=== PATIENT | female | born 1950 | race Caucasian/White ===

== ENCOUNTER 2017-09-24 19:04 | Emergency (ER) | payer MEDICARE, BC ==
[2017-09-24 21:39] LABS: Basophils % (A) 0 %; Eosinophils # (A) 0.1 k/uL (0-0.7); Eosinophils % (A) 2 %; HCT 36.6 % (34.0-46.0); HGB 12.8 gm/dL (11.4-16.0); Lymphocytes # (A) 1.2 k/uL (1.0-4.8); Lymphocytes % (A) 17 %; MCH 32.2 pg (25.0-35.0); Mean Platelet Volume 7.6; Monocytes # (A) 0.5 k/uL (0-1.0); Monocytes % (A) 7 %; Neutrophils % (A) 72 %; Platelet Count 225 k/uL (150-450); RBC 3.97 m/uL (3.80-5.40); WBC 6.9 k/uL (3.8-10.6)
[2017-09-24] MEDS ORDERED: ceFAZolin IN SWFI 2 GM/20 ML SYRINGE IVP ONE (22:12)
--- NOTE | 2017-09-24 22:24 | ED ---
General Adult HPI - General Chief complaint: Extremity Problem,Nontraumatic Stated complaint: poss DVT Time Seen by Provider: 09/24/17 21:07 Source: patient, family Mode of arrival: ambulatory Limitations: no limitations - History of Present Illness Initial comments: Female presents with the right leg swelling, redness ongoing for about 24 hours now it's painful and numb right calf has swollen in size, she has a history of DVT in the right leg and now she is concerned about swelling on the front part of the leg below the knee. She has a history of peripheral vascular disease she swallows up with [facility] vascular clinic. She denies any trauma or fall onto her right knee denies any trauma no fever no chills no chest pain no pleuritic chest pain or abdominal pain no frequency urgency dysuria no symptoms of TIA or CVA - Related Data Home Medications Medication Instructions Recorded Confirmed Atorvastatin [Lipitor] 20 mg PO DAILY 09/24/17 09/24/17 Calcium Carbonate/Vitamin D3 1 tab PO DAILY 09/24/17 09/24/17 [Calcium 600-Vit D3 400 Caplet] Celecoxib [CeleBREX] 200 mg PO DAILY 09/24/17 09/24/17 Cholecalciferol [Vitamin D3] 1,000 unit PO QID 09/24/17 09/24/17 Warfarin [Coumadin] 5 mg PO MOWEFR 09/24/17 09/24/17 Warfarin [Coumadin] 5 mg PO SUTUTHSA 09/24/17 09/24/17 Previous Rx's Medication Instructions Recorded Amoxicillin/Potassium Clav 1 tab PO Q12HR #20 tab 09/24/17 [Augmentin 875-125 Tablet] Allergies Allergy/AdvReac Type Severity Reaction Status Date / Time No Known Allergies Allergy Verified 09/24/17 21:34 Review of Systems ROS Statement: Those systems with pertinent positive or pertinent negative responses have been documented in the HPI. ROS Other: All systems not noted in ROS Statement are negative. Past Medical History Additional Past Medical History / Comment(s): right leg swelling History of Any Multi-Drug Resistant Organisms: None Reported Additional Past Surgical History / Comment(s): vascular surgery right leg Past Psychological History: No Psychological Hx Reported Smoking Status: Never smoker Past Alcohol Use History: None Reported Past Drug Use History: None Reported General Exam - General Exam Comments Initial Comments: General: The patient is awake and alert, in no distress, and does not appear acutely ill. Skin: Skin is warm and examination of the right leg shows circumference of the right calf is larger than the left one she also has a area about 10 x 10 cm below the knee is erythematous is warm and is tender to touch she is also tender over the posterior side of the right lower extremity, no neurovascular compromise noticed of the right distal leg and the foot Eye: Pupils are equal, round and reactive to light, extra-ocular movements are intact; there is normal conjunctiva bilaterally. Ears, nose, mouth and throat: There are moist mucous membranes and no oral lesions. Neck: The neck is supple, there is no tenderness or JVD. Cardiovascular: There is a regular rate and rhythm. No murmur, rub or gallop is appreciated. Respiratory: To auscultation bilateral, no wheezing no rhonchi no distress respiratory dowell noticed Gastrointestinal: Soft, non-distended, non-tender abdomen without masses or organomegaly noted. There is no rebound or guarding present. Bowel sounds are unremarkable. Back: There is no tenderness to palpation in the midline. There is no obvious deformity. Musculoskeletal: Normal ROM, no tenderness, There is no pedal edema. There is no calf tenderness or swelling. No cords were appreciated. Neurological: CN II-XII intact, Cranial nerves III through XII are intact. There are no obvious motor or sensory deficits. Coordination appears grossly intact. Speech is normal. Psychiatric: Cooperative, appropriate mood & affect, normal judgment. Limitations: no limitations Course Vital Signs 09/24/17 19:39 Temperature 98.7 F Pulse Rate 98 Respiratory 20 Rate Blood Pressure 154/66 O2 Sat by Pulse 97 Oximetry Medical Decision Making - Lab Data Result diagrams: 09/24/17 21:30 Lab Results 09/24/17 09/24/17 Range/Units 21:30 21:30 WBC 6.9 (3.8-10.6) k/uL RBC 3.97 (3.80-5.40) m/uL Hgb 12.8 (11.4-16.0) gm/dL Hct 36.6 (34.0-46.0) % MCV 92.0 (80.0-100.0) fL MCH 32.2 (25.0-35.0) pg MCHC 35.0 (31.0-37.0) g/dL RDW 13.0 (11.5-15.5) % Plt Count 225 (150-450) k/uL Neutrophils % 72 % Lymphocytes % 17 % Monocytes % 7 % Eosinophils % 2 % Basophils % 0 % Neutrophils # 5.0 (1.3-7.7) k/uL Lymphocytes # 1.2 (1.0-4.8) k/uL Monocytes # 0.5 (0-1.0) k/uL Eosinophils # 0.1 (0-0.7) k/uL Basophils # 0.0 (0-0.2) k/uL C-Reactive Protein 48.2 H (<10.0) mg/L Disposition Clinical Impression: Right leg swelling, Cellulitis, H/O peripheral vascular disease Disposition: HOME SELF-CARE Condition: Good Instructions: Cellulitis (ED) Additional Instructions: She is visiting [place] she plans to go back home in 2 days she was advised to follow-up with family doctor or return to the ER if symptoms get worse Prescriptions: Amoxicillin/Potassium Clav [Augmentin 875-125 Tablet] 1 tab PO Q12HR #20 tab Is patient prescribed a controlled substance at d/c from ED?: No Referrals: Nonstaff,Physician [Primary Care Provider] - 1-2 days
--- NOTE | 2017-09-24 22:43 | US ---
EXAMINATION TYPE: US venous doppler duplex LE RT DATE OF EXAM: 09/24/2017 9:17 PM COMPARISON: NONE CLINICAL HISTORY: Pain. SIDE PERFORMED: Right TECHNIQUE: The lower extremity deep venous system is examined utilizing real time linear array sonog dayami with graded compression, doppler sonography and color-flow sonography. VESSELS IMAGED: External Iliac Vein (EIV) Common Femoral Vein Deep Femoral Vein Greater Saphenous Vein * Femoral Vein Popliteal Vein Small Saphenous Vein * Proximal Calf Veins (* superficial vessels) Patient of large body habitus. Right Leg: Negative for DVT IMPRESSION: Normal exam. No evidence of deep venous thrombosis in the right leg.
[2017-09-24 23:45] VITALS: BP 141/84; PULSE 77; RESP 17; TEMP 97.6
== END 2017-09-24 23:45 | disposition home or self-care (01) ==
LOC: EC 19:04
DX: L03.115 Cellulitis of right lower limb (principal); Z86.79 Personal history of other diseases of the circulatory system; Z86.718 Personal history of other venous thrombosis and embolism; Z79.01 Long term (current) use of anticoagulants; Z79.899 Other long term (current) drug therapy
CPT/HCPCS: 36415; 85025; 86140; 93971; 99284; J0690